=== PATIENT | male | born 1960 | race Caucasian/White ===

== ENCOUNTER 2020-06-22 14:08 | Inpatient (IN) | payer OTHER ==
[2020-06-22] MEDS ORDERED: Dextrose 50% Abboject 50 ML SYRINGE SLOW IVP PRN (17:07)
[2020-06-22] MEDS ORDERED: Ondansetron PF 4 MG/2 ML Vial IVP PRN (17:07)
[2020-06-22] MEDS ORDERED: Dextrose 5% in Water 1,000 ML IV PRN (17:07)
--- NOTE | 2020-06-22 17:16 | RAD ---
Portable frontal chest radiograph: 06/22/2020 COMPARISON: None available HISTORY: Fall, trauma, pain FINDINGS: Lungs are clear. Heart and mediastinal contours appear within normal limits. IMPRESSION: No acute findings.
[2020-06-22 17:29] LABS: #Lymphocytes 0.6 thou/uL (1.20-3.40); #Monocytes 0.4 thou/uL (0.11-0.59); #Neutrophils 4.6 thou/uL (1.40-6.50); %Basophils 0.3 % (0.0-1.0); %Eosinophils 0.4 % (0.0-10.0); %Lymphocytes 11.3 % (21.0-51.0); %Monocytes 7.2 % (0.0-10.0); %Neutrophils 80.8 % (42.0-75.0); Mean Corpuscular HGB CONC 33.9 g/dL (32.0-36.0); Mean Corpuscular Hemoglobin 29.9 pg (27.0-31.0); Mean Corpuscular Volume 88.2 fL (78.0-98.0); Mean Platelet Volume 7.2 fL (7.4-10.4); Platelet Count 119 thou/uL (130-400); RBC Distribution Width 13.9 % (11.5-14.5); Red Blood Cell (RBC) Count 4.69 mill/uL (4.70-6.10); White Blood Cell (WBC) Count 5.7 thou/uL (4.8-10.8)
[2020-06-22 18:47] LABS: Anion Gap 12 mmol/L (10-20); BUN (Urea Nitrogen) 19 mg/dL (8.4-25.7); Calc. Creatinine Clearance 0 mL/min (70-130); Calcium 8.4 mg/dL (7.8-10.44); Carbon Dioxide 24 mmol/L (22-29); Chloride 107 mmol/L (98-107); Estimated GFR-MDRD 73; Glucose 175 mg/dL (70-105); Magnesium 1.9 mg/dL (1.6-2.6); Phosphorus 3.4 mg/dL (2.3-4.7); Potassium 3.4 mmol/L (3.5-5.1); Sodium 140 mmol/L (136-145)
--- NOTE | 2020-06-22 19:13 | HP ---
This is Carmen Vieira NP dictating a report for Curt Grewal DO. REQUESTING PHYSICIAN: Johnny Jerome DO ATTENDING: Curt Grewal DO CONSULTS: Neurosurgery, Dr. Parra. CHIEF COMPLAINT: Slipped and fell, loss of consciousness, head laceration. HISTORY OF PRESENT ILLNESS: This is a 59-year-old gentleman from the skilled nursing unit, who was in the shower and slipped and fell, landing on his head. The patient did have a positive loss of consciousness. The patient was found unconscious anywhere from 30 seconds to a minute. The patient was taken to [facility], where he was evaluated to have intracranial hemorrhages. The patient's GCS has been 15. The patient arrived hypertensive at [place] [facility] and the patient was placed on nitroglycerin drip. The patient denies any nausea, vomiting, or headaches. The patient denied any shortness of breath, dizziness, or chest pain before falling. The patient is not on any anticoagulants, only takes baby aspirin daily. ALLERGIES: NO KNOWN DRUG ALLERGIES. MEDICATIONS: 1. Lisinopril 20 mg daily. 2. Aspirin 81 mg daily. 3. Furosemide 40 mg daily. 4. Atorvastatin 20 mg daily. PAST MEDICAL HISTORY: Hypertension and cerebrovascular accident. No deficits in 2016. SOCIAL HISTORY: The patient was a former smoker, who quit 4 years ago, 40 plus years of smoking. No illicit drug use. No alcohol use. PAST SURGICAL HISTORY: Denies. REVIEW OF SYSTEMS: A 10-point review of systems is negative unless otherwise indicated in the above HPI. PHYSICAL EXAMINATION: VITAL SIGNS: Blood pressure 138/77, pulse 78, respirations 17, SpO2 of 98% on room air, and temperature 98.1. GENERAL: Middle-age male, incarcerated, awake, alert, no distress. HEENT: Head is normocephalic, laceration to the back of head, sutured with Vicryl, no active bleeding. Midface is stable. Pupils are equal bilateral. Poor dentition. Mucous membranes are moist. Extraocular muscles are intact. NECK: No cervical spine tenderness. Normal range of motion of neck. No JVD. RESPIRATORY: Bilateral breath sounds clear. No wheezing, rales, or rhonchi. Respirations are even and unlabored. CARDIAC: Regular rate. Regular rhythm. No murmurs. +2 pitting pedal edema, chronic. ABDOMEN: Soft, nontender, and nondistended. PELVIS: Stable. EXTREMITIES: Moves all extremities, neurovascularly intact. No obvious injuries. 2+ pitting edema. Positive pedal pulses. NEUROLOGIC: No focal deficits. GCS 15. Cranial nerves intact, II through XII. LABORATORY DATA: WBC 5.7, RBC 4.69, hemoglobin 14.0, hematocrit 41.4, and platelets 119. Sodium 143, potassium 3.6, chloride 106, carbon dioxide 29, BUN 19, creatinine 1.19, estimated GFR 63, glucose 155, calcium 8.6, total bilirubin 1.2, AST 29, ALT 29, alkaline phosphatase 116, and albumin 3.8. DIAGNOSTIC DATA: 1. Chest x-ray, impression, no acute finding. Lungs are clear. Heart, mediastinal contours appear within normal limits. 2. Cervical spine CT, impression, no fracture. Multilevel degenerative changes of the cervical spine. . 3. Brain CT, impression, there is acute bilateral subarachnoid hemorrhage, right greater than left, and a small amount of subtentorial subdural acute hemorrhage. No midline shift is seen. Ventricular size is appropriate. Scalp contusion in the right posteroparietal region. ASSESSMENT: 1. Status post slip and fall. 2. Bilateral subarachnoid hemorrhages, right greater than left. 3. Small amount of subtentorial subdural hemorrhage. 4. Posterior scalp laceration, repaired with Vicryl sutures. 5. Hypertension. 6. History of cerebrovascular accident. No deficits . PLAN: Admit to the [facility] with q.1 hour neuro checks for 4 hours and then q.[address] neuro [address] Repeat head CT in the morning or sooner if the patient has a decline in GCS of 2 or more points. Head of bed elevated at all times. Clear liquid diet. Maintain systolic blood pressure below 150. The plan was discussed with the patient and the attending, who agrees. Job ID: [id number]
[2020-06-22] MEDS ORDERED: TETANUS AND DIPHTHERIA TOX/PF 0.5 ML DISP.SYRIN IM ONE (21:00)
[2020-06-22] MEDS ORDERED: Acetaminophen 500 MG TAB ONE (21:18)
[2020-06-22] MEDS: hydrALAZINE 20 MG/ML VIAL SLOW IVP PRN (22:59)
[2020-06-22] MEDS: Famotidine 20 MG TAB PO SCH (22:59)
[2020-06-22] MEDS: Acetaminophen 500 MG TAB PO SCH (22:59)
[2020-06-22 23:09] VITALS: BMI 37.5
[2020-06-23] MEDS ORDERED: Labetalol HCl 100 MG/20 ML VIAL SLOW IVP PRN (00:26)
[2020-06-23] MEDS: Acetaminophen 500 MG TAB PO SCH ×4 (00:42→18:00)
[2020-06-23] MEDS ORDERED: Labetalol HCl 100 MG/20 ML VIAL SLOW IVP SCH (01:30)
--- NOTE | 2020-06-23 02:35 | PRG ---
DATE OF SERVICE: 06/22/2020 SUBJECTIVE: The patient was seen this evening during rounds in the emergency department while he is pending placement to the [facility]. At the time of my evaluation, the patient complained of a headache. He had just received Tylenol about 5 minutes before I arrived. There are no neuro deficits. GCS is 15. OBJECTIVE: VITAL SIGNS: Temperature is afebrile, hemodynamically stable. Systolic blood pressure below 160. Heart rate in the 70s and he is breathing about 16 times a minute. Oxygen saturation is 98% on room air. GENERAL: Well-appearing middle-aged male, sitting up in bed with no signs of acute distress. PULMONARY: Equal chest rise and fall. No signs of acute respiratory distress. ASSESSMENT: 1. Status post mechanical fall from standing. 2. Bilateral subarachnoid and tentorial subdural hemorrhages. 3. History of hypertension and cerebrovascular accident. PLAN: Continue clear liquid diet. Repeat head CT in the morning, q.1-hour neuro checks. Goal systolic blood pressure less than 160. We will use p.r.n. hydralazine and labetalol for blood pressure control. Previously, he was on nitroglycerin drip, which has been discontinued. If he needs any kind of more aggressive antihypertensive measures, we will start a Cardene drip. Restart home medications of indicated. We will hold any anticoagulation or any antiplatelets. Repeat head CT in the morning. Job ID: [id number]
[2020-06-23 04:17] LABS: #Eosinphils 0.1 thou/uL (0.0-0.7); #Lymphocytes 1.7 thou/uL (1.20-3.40); #Monocytes 0.6 thou/uL (0.11-0.59); #Neutrophils 2.6 thou/uL (1.40-6.50); %Basophils 0.8 % (0.0-1.0); %Eosinophils 2.4 % (0.0-10.0); %Lymphocytes 33.3 % (21.0-51.0); %Monocytes 11.5 % (0.0-10.0); Hemoglobin 13.5 g/dL (14.0-18.0); Mean Corpuscular HGB CONC 35.2 g/dL (32.0-36.0); Mean Corpuscular Hemoglobin 31.1 pg (27.0-31.0); Mean Corpuscular Volume 88.3 fL (78.0-98.0); Mean Platelet Volume 7.4 fL (7.4-10.4); Platelet Count 115 thou/uL (130-400); RBC Distribution Width 13.9 % (11.5-14.5); Red Blood Cell (RBC) Count 4.35 mill/uL (4.70-6.10)
[2020-06-23 04:39] LABS: Anion Gap 13 mmol/L (10-20); BUN (Urea Nitrogen) 18 mg/dL (8.4-25.7); Calc. Creatinine Clearance 149 mL/min (70-130); Calcium 8.4 mg/dL (7.8-10.44); Carbon Dioxide 24 mmol/L (22-29); Chloride 107 mmol/L (98-107); Estimated GFR-MDRD 76; Glucose 132 mg/dL (70-105); Magnesium 2.2 mg/dL (1.6-2.6); Phosphorus 3.3 mg/dL (2.3-4.7); Potassium 3.1 mmol/L (3.5-5.1); Sodium 141 mmol/L (136-145)
[2020-06-23] MEDS: hydrALAZINE 20 MG/ML VIAL SLOW IVP PRN (05:03)
[2020-06-23] MEDS: Lisinopril 20 MG TAB PO SCH (05:27)
[2020-06-23] MEDS ORDERED: niCARdipine 25 MG in Sodium Chloride 0.9% 250 ML 250 ML IVPB SCH (06:45)
--- NOTE | 2020-06-23 07:39 | CT ---
PRELIMINARY REPORT/[facility]/EMERGENCY AFTER HOURS PROCEDURE: Addendum: Comparison is made to head CT from yesterday, June 22, 2020. Scattered areas of bilat eral subarachnoid hemorrhage, right greater than left, and small amount of hemorrhage layering at the tentorium, primarily on the right, are essentially stable compared to the prior study given differen jamilah in technique. There is slight interval improvement in extracranial soft tissue swelling and gail gabbie at the posterior right vertex. Stable atif cisterna magna versus posterior fossa arachnoid cyst , more prominent on the left. Addendum electronically signed by Francisco Sanders MD on June 23, 2020 5:09:45 AM CDT This report was discussed with Jacqui Wing RN by Lola Green on Jun 23, 2020 04:32:00 CDT. Addendum electronically signed by Lola Green on June 23, 2020 4:32:32 AM CDT EXAM: CT Head Without Intravenous Contrast. CLINICAL HISTORY: M58, FOLLOW UP TBI TECHNIQUE: Axial computed tomography images of the head/brain without intravenous contrast. LIMITATIONS: Limited exam due to the lack of prior imaging and coronal/sagittal reformats. COMPARISON: None provided. FINDINGS: BRAIN: Bilateral scattered areas of subarachnoid and parenchymal hemorrhage, with 2.0 cm area of hemorrhage at the right vertex, seen on image 26 of series 2. There may be a small amount of layering hemorrhag e of the right tentorium. Hypoplastic left cerebellar hemisphere No midline shift. Subcortical and periventricular hypodensities may be related to chronic microvascular ischemic change.6 VENTRICLES: No hydrocephalus. ORBITS: The orbits are unremarkable. SINUSES AND MASTOIDS: The paranasal sinuses and mastoid air cells are clear. SOFT TISSUES: No significant facial or scalp soft tissue swelling evident. No radiopaque foreign body is seen. BONES: No acute skull fracture. IMPRESSION: Scattered areas of subarachnoid hemorrhage and possible small areas of parenchymal hemorrhage bilater ally. There may be a small amount of hemorrhage layering of the right tentorium. Please note that t his is a limited exam due to the lack of prior imaging and coronal/sagittal reformats. ELECTRONICALLY SIGNED BY: Francisco Sanders MD Jun 23, 2020 4:22:02 AM CDT This report is intended for review by the ordering physician only, in accordance of law. If you recei ve this report in error, please call [facility] at [phone]. FINAL REPORT EMERGENCY AFTER HOURS CT BRAIN WITHOUT CONTRAST: DATE: 06/23/2020 COMPARISON: 06/22/2020. FINDINGS/IMPRESSION: I agree with the findings and impression given in the preliminary report per [facility] physici an. There are scattered stable areas of subdural and subarachnoid hemorrhage. POS: CHRISTINAA
[2020-06-23] MEDS ORDERED: Potassium Chloride 40 MEQ in Sodium Chloride 0.9% 250 ML 250 ML IVPB SCH (08:00)
[2020-06-23] MEDS: Atorvastatin Calcium 20 MG TAB PO SCH (09:22)
[2020-06-23] MEDS: Furosemide 40 MG TAB PO SCH (09:22)
[2020-06-23] MEDS: Amlodipine 10 MG TAB PO SCH (09:39)
[2020-06-23] MEDS: Famotidine 20 MG TAB PO SCH ×2 (09:39→21:42)
[2020-06-23] MEDS ORDERED: CEFAZOLIN 2 GM in Premix Bag 1 BAG IVPB SCH (10:30)
--- NOTE | 2020-06-23 10:59 | CT ---
HEAD CT WITHOUT CONTRAST: HISTORY: Status post fall. Follow-up subdural. COMPARISON: 06/23/2020. FINDINGS: Hemorrhage: Redemonstration of hemorrhage along the right tentorium and posterior right parafalcine r egion. Redemonstration of hemorrhage in the right sylvian fissure. There are additional areas of extraaxial hemorrhage involving a right frontal sulcus as well as the left frontal subarachnoid space . There is redemonstration of stable hemorrhage involving the right frontal subarachnoid space, near the vertex. Additional hyperdensity along the left frontal subarachnoid space is noted. Stable i ntraparenchymal hemorrhage involving the right caudate nucleus. Brain parenchyma: Cortical parekh-white matter differentiation is preserved. No mass effect or midline shift. Basilar cisterns are patent.Chronic small vessel ischemic changes of the white matter. Ventricular system: Ventricles and sulci are patent and symmetric. Calvarium: Intact. Sinuses and mastoid air cells: Adequate aeration. IMPRESSION: Essentially stable intracranial hemorrhage. Transcribed Date/Time: 06/23/2020 11:05 AM
[2020-06-23] MEDS: Lidocaine 1% w/Epinephrine 1:100K 20 ML VIAL ONE ×2 (12:09→15:52)
[2020-06-23 13:03] LABS: SARS-CoV-2 MS2 Positive; SARS-CoV-2 N Gene Negative; SARS-CoV-2 S Gene Negative; SARS-CoV-2 by NAA Not Detected (NotDetected); SARS-CoV-2 orf1ab Negative
[2020-06-23] MEDS ORDERED: Lidocaine 1% (PF) 30 ML VIAL ONE (13:28)
--- NOTE | 2020-06-23 14:06 | PDOC.BPN ---
- Brief Progress Note Encounter Date: 06/23/20 Encounter Time: 13:45 Procedure Name: Laceration Repair Location: Right lateral scalp Informed consent was verbally obtained before procedure started. PROCEDURE: The appropriate timeout was taken. The area was prepped using Hibiclens wash and irrigated with saline flush. Local anesthesia was achieved using 2cc of Lidocaine 1% without epinephrine. Area was inspected and it appears portion of laceration already repaired with 4 sutures in placed (per patient by outside Manpreet D). There is a 2.0 cm length remaining open area where it appears suture has been previously cut/ruptured. At this site 4 wendi were placed with good approximation of skin. Estimated blood loss was 0 mL. The patient tolerated the procedure well without complications.
[2020-06-23] MEDS: Labetalol HCl 100 MG/20 ML VIAL SLOW IVP PRN (21:43)
[2020-06-24] MEDS: Acetaminophen 500 MG TAB PO SCH ×2 (01:00→12:52)
--- NOTE | 2020-06-24 01:35 | PRG ---
DATE OF SERVICE: 06/23/2020 SUBJECTIVE: This is a 59-year-old gentleman, status post mechanical fall resulting in mild TBI. The patient has recently been transferred from the intensive care unit to the floor. Upon my evaluation this evening, he vocalized no complaint. Reports pain is controlled. He is mildly hypertensive, however, pain home medications have been resumed. He has required p.r.n. antihypertensives IV. OBJECTIVE: VITAL SIGNS: Reviewed and as documented in the electronic medical record. GENERAL: Resting in bed, in no acute distress. Guards at bedside. PULMONARY: Normal work of breathing. Symmetric rise. MUSCULOSKELETAL: Moves all extremities x4. ASSESSMENT: 1. Status post mechanical fall. 2. Bilateral subarachnoid hemorrhages, right greater than left. 3. Subtentorial subdural hemorrhage. 4. Posterior scalp laceration. 5. Hypertension. 6. History of CVA with no residual deficit. PLAN: Continue supportive care as ordered. Continue scheduled and p.r.n. antihypertensives. If patient continues to require multiple IV antihypertensive, we will have to adjust home regimen. Follow neurosurgical recommendations. Job ID: [id number]
[2020-06-24] MEDS: Furosemide 40 MG TAB PO SCH (10:07)
[2020-06-24] MEDS: Amlodipine 10 MG TAB PO SCH (10:08)
[2020-06-24] MEDS: Famotidine 20 MG TAB PO SCH (10:08)
[2020-06-24] MEDS: Atorvastatin Calcium 20 MG TAB PO SCH (10:08)
[2020-06-24] MEDS: Lisinopril 20 MG TAB PO SCH (10:08)
[2020-06-24] MEDS: Labetalol HCl 100 MG/20 ML VIAL SLOW IVP PRN (11:40)
--- NOTE | 2020-06-24 12:04 | PRG ---
DATE OF SERVICE: 06/24/2020 Mr. Zeng is a 59-year-old man, who was admitted for fall and head laceration with traumatic subarachnoid hemorrhage. Head CT from June 23 demonstrates stable falcine and tentorial right-sided subdural hematoma. There is no role for neurosurgical intervention at this point. The patient is neurologically intact. I would recommend a repeat head CT in 1 month. Job ID: [id number]
[2020-06-24 16:27] VITALS: BP 165/98; TEMP 98
--- NOTE | 2020-06-24 18:36 | DIS ---
DATE OF ADMISSION: 06/22/2020 DATE OF DISCHARGE: 06/24/2020 CONSULT: Neurosurgery, Dr. Parra. PROCEDURE: None. PRIMARY DIAGNOSES: 1. Slipped and fell; scalp laceration, repaired with dissolvable sutures and wendi. 2. Bilateral subarachnoid hemorrhages, right greater than left, small amount of subtentorial subdural hemorrhage. 3. Hypertension. SECONDARY DIAGNOSES: Hypertension and cerebrovascular accident. DISCHARGE MEDICATIONS: 1. Acetaminophen 1000 mg p.o. q.6 hours as needed for pain. 2. Norvasc 10 mg p.o. daily. 3. Lipitor 20 mg p.o. daily. 4. Lasix 40 mg p.o. daily. 5. Lisinopril 20 mg p.o. daily. No discontinued medications. HISTORY OF PRESENT ILLNESS AND HOSPITAL COURSE: This is a 59-year-old gentleman from the long-term unit who was in the shower when he slipped and fell, landing on his head. Patient did have a brief loss of consciousness. Patient was originally taken to [facility], where he was evaluated and found to have intracranial hemorrhages. Patient had a GCS of 15. Patient was transferred and started on a nitroglycerin drip for hypertension. Patient's blood pressure was controlled and the drip was discontinued. Patient denied any nausea, vomiting, or headaches. Patient's scalp laceration was repaired with dissolvable sutures. During this hospital stay, he did have some dehiscence of the wound and wendi were used to re-repair of head laceration. Patient was briefly started on Cardene for his hypertension and then was restarted on his home blood pressure medications, which controlled his blood pressure. Patient continued to have a GCS of 15 and his repeat head CT the next morning was stable. On the day of discharge, patient was examined by Dr. Grewal. Patient had no complaints or concerns. Patient continued to have a GCS of 15, was able to ambulate without any difficulties. Patient's exam was unremarkable, including cardiopulmonary and GI exam. His vital signs were stable. Patient was deemed stable for discharge back to the long-term unit. DISPOSITION: Stable. DISCHARGE INSTRUCTIONS: Home, long-term unit. DIET: Cardiac diet as tolerated. ACTIVITY: As tolerated. FOLLOWUP: Follow up with Neurosurgery, Dr. Parra, in four weeks. DISCHARGE INSTRUCTIONS: Patient is to avoid all anticoagulants, for four weeks. No need to follow up with Trauma Services. Wendi can be removed in 3 to 5 days. Job ID: [id number]
--- NOTE | 2020-06-26 13:29 | PQF ---
CLINICAL DOCUMENTATION CLARIFICATION FORM: Dear : Curt Grewal DO Date / Time: 06/26/2020 Please exercise your independent, professional judgment in responding to the clarification form. Clinical indicators are provided on the bottom of this form for your review Please check appropriate box(es): [ ] Hypertensive emergency [ ] Hypertensive crisis [ X ] Hypertensive urgency [ ] Other diagnosis (Please specify if any) [ ] Unable to determine Physician Signature: Date/Time: For continuity of documentation, please document condition throughout progress notes and discharge summary. Thank You. To be completed by CDI/Coding staff for physician review: Present Clinical Indicators - Signs / Symptoms / Labs Results and Location in Medical Record [x ] Patient arrived hypertensive at [facility] and the patient was placed on nitroglycerin drip H&P on 06/22 [ x ] Maintain systolic blood pressure below 150 H&P on 06/22 [ x ] Bilateral subarachnoid hemorrhages, right greater than left H&P on 06/22 [x ] He is mildly hypertensive, however, pain hime medications have been resumed. He has required p.r.n antihypertensives IV Progress notes on 06/24 [x ] Patient was transferred and started on a nitroglycerin drip for hypertension.Pt blood pressure controlled and drip was discontinued Discharge summary on 06/24 Present Risk Factors Results and Location in Medical Record [ x ] Past medical history: hypertension H&P on 06/22 [ x ] Bilateral subarachnoid hemorrhages Discharge summary on 06/24 [ ] [ ] Present Treatments Results and Location in Medical Record [ x] Goal systolic blood pressure less than 160. Progress notes on 06/23 [ x] We will use p.r.n hydralazine and labetalol for blood pressure control. Progress notes on 06/23 [ x] Labetalol 10 mg IV Medication on 06/23,06/24 [ x ] Apresoline 10mg IV Medication on 06/22 CDS/Laboratory Helper Signature: AAS Phone #: Date/Time: 06/26/2020 This is a permanent part of the Medical Record [facility]
--- NOTE | 2020-06-27 13:40 | EKG ---
Test Reason : FALL/SDH Blood Pressure : / mmHG Vent. Rate : 075 BPM Atrial Rate : 075 BPM P-R Int : 176 ms QRS Dur : 096 ms QT Int : 418 ms P-R-T Axes : 040 -18 012 degrees QTc Int : 466 ms Normal sinus rhythm Normal ECG Confirmed by PAYAM HINDS DO ([id number]), primer expeditor and drier MARY BOWIE ([id number]) on 06/27/2020 1:40:03 PM Referred By: GUZMAN Confirmed By:PAYAM HINDS DO
== END 2020-06-24 17:35 | DRG 87 ==
LOC: ERS 14:08 → EEVIPCON 14:08 → INTOOBSV 16:48 → IMCU/EMU 16:48 → OBSVTOIN 16:48 → CCU 06-23 07:35 → SURG A 06-23 20:13
PROVIDERS: ADMIT Surgery; ATTEND Surgery
PROC: 0HQ0XZZ Repair Scalp Skin, External Approach (ICD-10-PCS; principal; 2020-06-23)
DX: S06.6X1A Traumatic subarachnoid hemorrhage with loss of consciousness of 30 minutes or less, initial encounter (principal); I10 Essential (primary) hypertension; S01.01XA Laceration without foreign body of scalp, initial encounter; W01.0XXA Fall on same level from slipping, tripping and stumbling without subsequent striking against object, initial encounter; S06.5X1A Traumatic subdural hemorrhage with loss of consciousness of 30 minutes or less, initial encounter; Z20.828 Contact with and (suspected) exposure to other viral communicable diseases; Z86.73 Personal history of transient ischemic attack (TIA), and cerebral infarction without residual deficits; Z79.82 Long term (current) use of aspirin; Z79.899 Other long term (current) drug therapy; Z90.49 Acquired absence of other specified parts of digestive tract; Z87.891 Personal history of nicotine dependence; I16.0 Hypertensive urgency
CPT/HCPCS: 36415; 70450; 71045; 80048; 83735; 84100; 85025; 87635; 93005; 96365; 96366; 96367; 96375; 96376; G0378; G0390; J0360; J0690; J2001; J3480; J7050; U0003

== ENCOUNTER 2024-09-07 03:47 | Inpatient (IN) | payer OTHER ==
[2024-09-07 04:57] LABS: Hemoglobin 14.7 g/dL (14.0-18.0); Red Blood Cell (RBC) Count 4.93 mill/uL (4.70-6.10)
[2024-09-07 04:58] LABS: #Basophils 0.04 10x3/uL (0.0-0.2); %Basophils 0.7 % (0.0-1.0); %Eosinophils 1.1 % (0.0-10.0); %Lymphocytes 22.8 % (21.0-51.0); %Monocytes 10.2 % (0.0-10.0); %Neutrophils 64.7 % (42.0-75.0); Hematocrit 42.5 % (42.0-52.0); Mean Corpuscular HGB CONC 34.6 g/dL (32.0-36.0); Mean Corpuscular Hemoglobin 29.8 pg (27.0-31.0); Mean Corpuscular Volume 86.2 fL (78.0-98.0); Mean Platelet Volume 9.2 fL (7.4-10.4); Platelet Count 123 10x3/uL (130-400); RBC Distribution Width 13.7 % (11.5-14.5)
[2024-09-07 05:05] LABS: ALT (SGPT) 12 U/L (8-55); AST (SGOT) 16 U/L (5-34); Albumin 3.6 g/dL (3.4-4.8); Alkaline Phosphatase 167 U/L (40-110); Anion Gap 13 mmol/L (10-20); BUN (Urea Nitrogen) 19 mg/dL (8.4-25.7); Bilirubin, Total 1.1 mg/dL (0.2-1.2); Calc. Creatinine Clearance 0 mL/min (70-130); Calcium 8.7 mg/dL (7.8-10.44); Carbon Dioxide 21 mmol/L (23-31); Chloride 108 mmol/L (98-107); Estimated GFR 72; Globulin 2.7 g/dL (2.4-3.5); Glucose 175 mg/dL (80-115); Potassium 3.4 mmol/L (3.5-5.1); Protein, Total 6.3 g/dL (5.8-8.1); Sodium 139 mmol/L (136-145)
[2024-09-07] MEDS ORDERED: dilTIAZem 25 MG/5 ML VIAL ONE ×2 (05:07→06:41)
[2024-09-07] MEDS ORDERED: Aspirin Chewable 81 MG TAB ONE (05:07)
[2024-09-07 05:10] LABS: Troponin I Less than 0.010 ng/mL (< 0.028)
[2024-09-07] MEDS ORDERED: Furosemide 40 MG (4 mL) VIAL ONE (06:11)
[2024-09-07] MEDS ORDERED: Enoxaparin 60 MG (0.6 mL) SYRINGE ONE (06:11)
[2024-09-07 07:06] LABS: Anisocytosis SLIGHT = 6-15 cells HPF (0-5); Platelet Adequacy Comment Platelets Decreased; Polychromasia SLIGHT = 2-3 cells HPF (0-2)
[2024-09-07] MEDS ORDERED: Ondansetron ODT 4 MG TAB SL PRN (07:15)
[2024-09-07] MEDS ORDERED: Ondansetron PF 4 MG/2 ML Vial IVP PRN ×2 (07:15→08:15)
[2024-09-07] MEDS ORDERED: Acetaminophen 325 MG TAB PO PRN ×2 (07:15→08:15)
[2024-09-07] MEDS ORDERED: Ondansetron ODT 4 MG TAB PO PRN (08:15)
[2024-09-07] MEDS ORDERED: Calcium Carbonate 500 MG ChewTAB PO PRN (08:15)
[2024-09-07] MEDS ORDERED: Senokot S 8.6-50 MG TAB PO PRN (08:15)
[2024-09-07] MEDS: Potassium Chloride 20 MEQ TAB PO SCH ×2 (08:45→10:45)
[2024-09-07] MEDS ORDERED: Potassium Chloride 20 MEQ TAB ONE ×3 (09:13→17:03)
[2024-09-07] MEDS ORDERED: Glucagon 1 MG/ML KIT IM PRN (09:55)
[2024-09-07] MEDS ORDERED: Dextrose 5% in Water 1,000 ML IV PRN (09:55)
[2024-09-07] MEDS ORDERED: Insulin Lispro 100 UNIT/ML 10 ML VIAL SC PRN ×2 (09:55)
[2024-09-07] MEDS ORDERED: Dextrose 50% Abboject 50 ML SYRINGE SLOW IVP PRN (09:55)
[2024-09-07] MEDS ORDERED: dilTIAZem 30 MG TAB PO SCH (11:30)
[2024-09-07] MEDS: Metoprolol Tartrate 5 MG (5 mL) VIAL IVP SCH ×2 (11:30→20:47)
[2024-09-07] MEDS ORDERED: Metoprolol Tartrate 5 MG (5 mL) VIAL ONE ×2 (11:31→17:52)
[2024-09-07] MEDS: Amlodipine 10 MG TAB PO SCH (12:00)
[2024-09-07] MEDS ORDERED: dilTIAZem 30 MG TAB PO PRN (12:14)
[2024-09-07] MEDS ORDERED: Amlodipine 5 MG TAB ONE (12:32)
[2024-09-07] MEDS ORDERED: Lisinopril 20 MG TAB ONE (12:32)
[2024-09-07] MEDS: Furosemide 40 MG (4 mL) VIAL SLOW IVP SCH (15:00)
[2024-09-07 16:04] LABS: Hemoglobin A1c 5.8 % (4.0-6.0)
[2024-09-07 16:06] LABS: Magnesium 2.1 mg/dL (1.6-2.6)
[2024-09-07] MEDS: Lisinopril 20 MG TAB PO SCH (17:06)
[2024-09-07] MEDS ORDERED: hydrALAZINE 20 MG/ML VIAL SLOW IVP PRN (17:10)
[2024-09-07 19:28] VITALS: BMI 34.7
[2024-09-07] MEDS: Atorvastatin Calcium 20 MG TAB PO SCH (20:51)
[2024-09-07] MEDS: Enoxaparin 120 MG/0.8 ML SYRINGE SC SCH (20:52)
[2024-09-07] MEDS: Metoprolol Tartrate 50 MG TAB PO SCH (20:52)
[2024-09-07 23:57] LABS: Troponin I Less than 0.010 ng/mL (< 0.028)
[2024-09-08 06:37] LABS: #Basophils 0.04 10x3/uL (0.0-0.2); %Basophils 0.8 % (0.0-1.0); %Eosinophils 2.7 % (0.0-10.0); %Lymphocytes 36.4 % (21.0-51.0); %Monocytes 12.1 % (0.0-10.0); %Neutrophils 47.6 % (42.0-75.0); Hematocrit 41.7 % (42.0-52.0); Hemoglobin 14.3 g/dL (14.0-18.0); Mean Corpuscular HGB CONC 34.3 g/dL (32.0-36.0); Mean Corpuscular Hemoglobin 29.7 pg (27.0-31.0); Mean Corpuscular Volume 86.7 fL (78.0-98.0); Mean Platelet Volume 9.4 fL (7.4-10.4); Platelet Count 138 10x3/uL (130-400); RBC Distribution Width 14.2 % (11.5-14.5); Red Blood Cell (RBC) Count 4.81 mill/uL (4.70-6.10)
[2024-09-08 06:57] LABS: Anion Gap 12 mmol/L (10-20); BUN (Urea Nitrogen) 25 mg/dL (8.4-25.7); Calc. Creatinine Clearance 91 mL/min (70-130); Calcium 8.2 mg/dL (7.8-10.44); Carbon Dioxide 22 mmol/L (23-31); Chloride 108 mmol/L (98-107); Estimated GFR 57; Glucose 149 mg/dL (80-115); Magnesium 2.1 mg/dL (1.6-2.6); Potassium 3.7 mmol/L (3.5-5.1); Sodium 138 mmol/L (136-145)
[2024-09-08] MEDS: Amlodipine 10 MG TAB PO SCH (09:38)
[2024-09-08] MEDS: Lisinopril 20 MG TAB PO SCH (09:40)
[2024-09-08] MEDS: Amiodarone 200 MG TAB PO SCH (21:07)
[2024-09-09 04:52] LABS: #Basophils 0.05 10x3/uL (0.0-0.2); %Basophils 1.2 % (0.0-1.0); %Eosinophils 2.4 % (0.0-10.0); %Lymphocytes 39.5 % (21.0-51.0); %Neutrophils 43.2 % (42.0-75.0); Hematocrit 41.6 % (42.0-52.0); Hemoglobin 13.8 g/dL (14.0-18.0); Mean Corpuscular HGB CONC 33.2 g/dL (32.0-36.0); Mean Corpuscular Hemoglobin 29.7 pg (27.0-31.0); Mean Corpuscular Volume 89.7 fL (78.0-98.0); Mean Platelet Volume 9.5 fL (7.4-10.4); Platelet Count 133 10x3/uL (130-400); RBC Distribution Width 14.3 % (11.5-14.5); Red Blood Cell (RBC) Count 4.64 mill/uL (4.70-6.10)
[2024-09-09 05:09] LABS: Anion Gap 10 mmol/L (10-20); BUN (Urea Nitrogen) 26 mg/dL (8.4-25.7); Calc. Creatinine Clearance 76 mL/min (70-130); Calcium 8.4 mg/dL (7.8-10.44); Carbon Dioxide 26 mmol/L (23-31); Chloride 106 mmol/L (98-107); Estimated GFR 46; Glucose 139 mg/dL (80-115); Potassium 3.8 mmol/L (3.5-5.1); Sodium 138 mmol/L (136-145)
[2024-09-10 05:18] LABS: #Basophils 0.05 10x3/uL (0.0-0.2); %Basophils 1.2 % (0.0-1.0); %Eosinophils 2.4 % (0.0-10.0); %Lymphocytes 40.1 % (21.0-51.0); %Monocytes 12.6 % (0.0-10.0); %Neutrophils 43.2 % (42.0-75.0); Hematocrit 40.2 % (42.0-52.0); Hemoglobin 13.8 g/dL (14.0-18.0); Mean Corpuscular HGB CONC 34.3 g/dL (32.0-36.0); Mean Corpuscular Hemoglobin 30.7 pg (27.0-31.0); Mean Corpuscular Volume 89.3 fL (78.0-98.0); Mean Platelet Volume 9.4 fL (7.4-10.4); Platelet Count 128 10x3/uL (130-400); RBC Distribution Width 14.2 % (11.5-14.5)
[2024-09-10 05:52] LABS: Anion Gap 12 mmol/L (10-20); BUN (Urea Nitrogen) 27 mg/dL (8.4-25.7); Calc. Creatinine Clearance 78 mL/min (70-130); Calcium 8.1 mg/dL (7.8-10.44); Carbon Dioxide 23 mmol/L (23-31); Chloride 103 mmol/L (98-107); Estimated GFR 47; Glucose 138 mg/dL (80-115); Potassium 3.4 mmol/L (3.5-5.1); Sodium 135 mmol/L (136-145)
[2024-09-10] MEDS ORDERED: Regadenoson 0.4 MG/5 ML SYRINGE ONE (11:08)
[2024-09-11 06:39] LABS: #Basophils 0.04 10x3/uL (0.0-0.2); %Eosinophils 1.8 % (0.0-10.0); %Lymphocytes 35.5 % (21.0-51.0); %Monocytes 12.2 % (0.0-10.0); %Neutrophils 49.2 % (42.0-75.0); Hematocrit 41.3 % (42.0-52.0); Hemoglobin 13.9 g/dL (14.0-18.0); Mean Corpuscular HGB CONC 33.7 g/dL (32.0-36.0); Mean Corpuscular Hemoglobin 29.6 pg (27.0-31.0); Mean Corpuscular Volume 88.1 fL (78.0-98.0); Mean Platelet Volume 9.8 fL (7.4-10.4); Platelet Count 123 10x3/uL (130-400); Red Blood Cell (RBC) Count 4.69 mill/uL (4.70-6.10)
[2024-09-11 06:52] LABS: Anion Gap 13 mmol/L (10-20); BUN (Urea Nitrogen) 22 mg/dL (8.4-25.7); Calc. Creatinine Clearance 91 mL/min (70-130); Calcium 8.6 mg/dL (7.8-10.44); Carbon Dioxide 25 mmol/L (23-31); Chloride 108 mmol/L (98-107); Estimated GFR 58; Glucose 138 mg/dL (80-115); Potassium 4.2 mmol/L (3.5-5.1); Sodium 142 mmol/L (136-145)
[2024-09-11] MEDS: Empagliflozin 10 MG TAB PO SCH (09:17)
[2024-09-12 04:58] LABS: Anion Gap 14 mmol/L (10-20); BUN (Urea Nitrogen) 21 mg/dL (8.4-25.7); Calc. Creatinine Clearance 87 mL/min (70-130); Calcium 8.4 mg/dL (7.8-10.44); Carbon Dioxide 25 mmol/L (23-31); Chloride 109 mmol/L (98-107); Estimated GFR 55; Glucose 116 mg/dL (80-115); Potassium 4.2 mmol/L (3.5-5.1); Sodium 144 mmol/L (136-145)
[2024-09-12 05:04] LABS: #Basophils 0.04 10x3/uL (0.0-0.2); %Basophils 0.8 % (0.0-1.0); %Eosinophils 1.2 % (0.0-10.0); %Lymphocytes 32.4 % (21.0-51.0); %Monocytes 10.5 % (0.0-10.0); %Neutrophils 54.9 % (42.0-75.0); Hematocrit 42.5 % (42.0-52.0); Hemoglobin 14.3 g/dL (14.0-18.0); Mean Corpuscular HGB CONC 33.6 g/dL (32.0-36.0); Mean Corpuscular Hemoglobin 29.9 pg (27.0-31.0); Mean Corpuscular Volume 88.9 fL (78.0-98.0); Mean Platelet Volume 10.2 fL (7.4-10.4); Platelet Count 142 10x3/uL (130-400); RBC Distribution Width 13.9 % (11.5-14.5); Red Blood Cell (RBC) Count 4.78 mill/uL (4.70-6.10)
[2024-09-12] MEDS: Spironolactone 25 MG TAB PO SCH (09:57)
[2024-09-12 10:40] VITALS: TEMP 97.8
[2024-09-12 17:15] VITALS: BP 158/93
[2024-09-12] MEDS ORDERED: Enoxaparin 120 MG/0.8 ML SYRINGE SC SCH (21:00)
[2024-09-13] MEDS ORDERED: Spironolactone 25 MG TAB PO SCH (08:00)
== END 2024-09-12 16:55 | DRG 291 ==
LOC: EEVIPCON 03:47 → ERS 03:47 → ERHOLD 07:59 → 2NO 18:20
PROVIDERS: ADMIT Student in an Organized Health Care Education/Training Program; ATTEND Internal Medicine
PROC: 5A2204Z Restoration of Cardiac Rhythm, Single (ICD-10-PCS; principal; 2024-09-12)
DX: I13.0 Hypertensive heart and chronic kidney disease with heart failure and stage 1 through stage 4 chronic kidney disease, or unspecified chronic kidney disease (principal); I50.23 Acute on chronic systolic (congestive) heart failure; J44.9 Chronic obstructive pulmonary disease, unspecified; I42.9 Cardiomyopathy, unspecified; E78.5 Hyperlipidemia, unspecified; E11.9 Type 2 diabetes mellitus without complications; I48.91 Unspecified atrial fibrillation; I16.0 Hypertensive urgency; N18.30 Chronic kidney disease, stage 3 unspecified; E87.6 Hypokalemia; Z86.73 Personal history of transient ischemic attack (TIA), and cerebral infarction without residual deficits; Z79.890 Hormone replacement therapy; Z79.899 Other long term (current) drug therapy
CPT/HCPCS: 36415; 36416; 71045; 78452; 80048; 80053; 83036; 83735; 83880; 84484; 85025; 85379; 92960; 93005; 93010; 93017; 93306; 93312; 93798; 94760; 96374; 96375; 96376; A9502; J1650; J1940; J2785